=== PATIENT | male | born 1980 | race Caucasian/White ===

== ENCOUNTER 2017-10-01 17:52 | Emergency (ER) | payer OTHER ==
[~2017-10-01] VITALS: Ht 190.5 cm; Wt 108.9 kg
[~2017-10-01 17:52] MED LIST: CYCLOBENZAPRINE10 M1 PO; DICLOFENAC SODI75 M2 PO; MOBIC15 M1 PO; SUBOXONE 8 MG-1 EACH SL; VICODIN5-300 PO
[2017-10-01 18:39] VITALS: BP 152/91
--- NOTE | 2017-10-01 19:27 | ED INFLUENZA/URI COMPLAINT ---
History of Present Illness General Chief Complaint: General Adult Stated Complaint: PT IS NOT FEELING WELL Source: patient Exam Limitations: no limitations Vital Signs & Intake/Output Vital Signs & Intake/Output Vital Signs Date Time Temp Pulse Resp B/P B/P Pulse O2 O2 Flow FiO2 Mean Ox Delivery Rate 10/01 1839 97.1 71 18 152/91 95 Room Air Allergies Coded Allergies: NO KNOWN ALLERGIES (07/12/15) Reconcile Medications Albuterol Sulfate (Ventolin Hfa) 90 MCG HFA.AER.AD 2 PUF INH Q4-6 PRN PRN SHORTNESS OF BREATH Azithromycin (Zithromax) 500 MG TABLET 1 TAB PO DAILY BRONCHITIS Benzonatate (Tessalon Perle) 100 MG CAPSULE 1 CAP PO TID PRN COUGH Buprenorphine HCl/Naloxone HCl (Suboxone 8 MG-2 MG Sl Film) 8 MG-2 MG FILM 1 STR SL DAILY MENTAL HEALTH (Reported) Codeine Phosphate/Guaifenesi (Cheratussin AC Syrup) 10 MG-100 MG/5 ML LIQUID 10 ML PO QPM PRN COUGH Fluticasone Propionate (Flonase Allergy Relief) 50 MCG/ACTUATION SPRAY.SUSP 2 SPRAY JODY DAILY PRN CONGESTION Meloxicam (Mobic) 15 MG TABLET 1 TAB PO DAILY pain Meloxicam (Mobic) 15 MG TABLET 1 TAB PO DAILY PRN PAIN/HEADACHE Triage Note: PT TO ED FOR FLU LIKE SYMPTOMS X SEVERAL DAYS. Triage Nurses Notes Reviewed? yes Onset: Gradual Duration: constant Timing: recent history Severity: severe Severity Numbers: 7 HPI: Patient is a 37-year-old male who presents to emergency room with concerns of four-day history of upper respiratory infection complaints such as nonproductive cough and nasal congestion shortness of breath symptoms body aches headaches sore throat and ear pain. Patient is never day smoker denies any positive sick contacts. Due to persistent coughing patient has itchy scratchy throat and hoarseness of voice Past History Travel History Traveled to [place] past 21 day No Medical History Any Pertinent Medical History? none Neurological: NONE EENT: NONE Cardiovascular: NONE Respiratory: NONE Gastrointestinal: NONE Hepatic: NONE Renal: NONE Musculoskeletal: NONE Psychiatric: NONE Endocrine: NONE Blood Disorders: NONE Cancer(s): NONE [employer]/Reproductive: NONE Surgical History Surgical History: non-contributory Psychosocial History What is your primary language Croatian Tobacco Use: Current Daily Use Daily Tobacco Use Amount/Type: => 5 Cigarettes daily ETOH Use: denies use Illicit Drug Use: denies illicit drug use Family History Hx Contributory? No Review of Systems Review of Systems Constitutional: Reports: see HPI, chills. EENTM: Reports: nasal congestion. Respiratory: Reports: see HPI, cough. Cardiovascular: Reports: no symptoms. GI: Reports: no symptoms. Genitourinary: Reports: no symptoms. Musculoskeletal: Reports: see HPI. Skin: Reports: no symptoms. Neurological/Psychological: Reports: headache. Hematologic/Endocrine: Reports: no symptoms. Immunologic/Allergic: Reports: no symptoms. All Other Systems: Reviewed and Negative Physical Exam Physical Exam General Appearance: no apparent distress, alert Head: atraumatic Eyes: Bilateral: normal appearance, PERRL, EOMI. Ears, Nose, Throat: moist mucous membrane, hearing grossly normal, Tympanic normal, pharynx normal, nasal congestion Neck: normal inspection, supple Respiratory: normal breath sounds, chest non-tender, no respiratory distress Cardiovascular: regular rate/rhythm Peripheral Pulses: 2+ radial (R), 2+ radial (L) Gastrointestinal: normal bowel sounds, soft, non-tender Extremities: normal inspection, normal capillary refill Neurologic/Psych: no motor/sensory deficits, awake, alert Skin: intact, normal color, warm/dry Core Measures Sepsis Present: No Sepsis Focused Exam Completed? No Progress Differential Diagnosis: influenza, meningitis, neutropenia, otitis, pneumonia, pharyngitis, sinusitis Plan of Care: Orders Procedure Date/time Status RAPID VIRAL INFLUENZA A 10/01 1839 Complete Microbiology 10/01 1842 NASOPHARYN: Influenza Virus A & B Rapid Smear - COMP Patient was afebrile nontoxic appearing clear lungs auscultation unremarkable year and throat exam patient does have nasal congestion nontender sinuses. Patient will be treated for concerns of upper respiratory infection Initial ED EKG: none Departure Departure Disposition: HOME OR SELF CARE Condition: Stable Clinical Impression Primary Impression: Bronchitis Referrals: Patient Has No Primary Care Dr (PCP/Family) Additional Instructions: As discussed begin the prescription of Tessalon Perles and Cheratussin for cough , begin the prescription of Ventolin for shortness of breath Flonase for congestion and azithromycin for the full course and meloxicam for headaches and body aches. Begin drinking plenty of water for hydration, percent is waiting at [facility]. If symptoms worsen return to emergency room. Follow-up with your primary care doctor in 4 days if no better Departure Forms: Customer Survey General Discharge Information Prescriptions: Current Visit Scripts Benzonatate (Tessalon Perle) 1 CAP PO TID PRN COUGH #21 CAP Codeine Phosphate/Guaifenesi (Cheratussin AC Syrup) 10 ML PO QPM PRN COUGH #100 ML Azithromycin (Zithromax) 1 TAB PO DAILY #5 TAB Albuterol Sulfate (Ventolin Hfa) 2 PUF INH Q4-6 PRN PRN SHORTNESS OF BREATH #1 INHAL Meloxicam (Mobic) 1 TAB PO DAILY PRN PAIN/HEADACHE #10 TAB Fluticasone Propionate (Flonase Allergy Relief) 2 SPRAY JODY DAILY PRN CONGESTION #1 BOT
[2017-10-01] MEDS ORDERED: ZITHROMAX500 M2 PO (19:37)
[2017-10-01] MEDS ORDERED: CHERATUSSIN AC118 M1 PO (19:37)
[2017-10-01] MEDS ORDERED: MOBIC15 M1 PO (19:37)
[2017-10-01] MEDS ORDERED: VENTOLIN HFA18 GM INH (19:37)
[2017-10-01] MEDS ORDERED: TESSALON PERLE100 M1 PO (19:37)
[2017-10-01] MEDS ORDERED: FLONASE ALLERG9.9 ML NAS (19:38)
== END 2017-10-01 19:47 ==
LOC: ERH 17:52
DX: J40 Bronchitis, not specified as acute or chronic (principal); Z72.0 Tobacco use
CPT/HCPCS: 87804; 87804-59